=== PATIENT | male | born 1975 | race Two or more races ===

== ENCOUNTER → 2025-04-19 | Outpatient (CLI) | payer OTHER, SELFPAY ==
--- NOTE | 2025-04-19 16:21 | XR_ITS ---
EXAMINATION: Cervical spine, 5 views Technique: Cervical spine AP, AP odontoid, lateral, bilateral obliques, 5 views Exam date and time: April 19, 2025 1624 hours INDICATIONS: Injury to the neck today, neck pain. FINDINGS: Adequate alignment cervical vertebral bodies. No cervical fracture. Intact odontoid. Moderate cervical spondylosis. Mild disc narrowing C4-C5, C5-C6 Mild bilateral neuroforaminal stenosis C4-C5, C5-C6, C6-C7 IMPRESSION: No cervical fracture Mild degenerative disc disease C4-C5, C5-C6 Mild bilateral neural foraminal stenosis as above.
--- NOTE | 2025-04-19 16:21 | XR_ITS ---
Examination: Thoracic spine 3 views TECHNIQUE: AP lateral, lateral upper dorsal spine 3 views Date and time: April 19, 2025 1638 hours INDICATIONS: Work injury to the upper back today FINDINGS: Standing thoracic spine films demonstrate no acute thoracic fracture Mild diffuse thoracic disc narrowing. Moderate thoracic spondylosis Intact pedicles IMPRESSION: No acute thoracic fracture Mild diffuse thoracic degenerative disc disease
== END | disposition home or self-care (01) ==
LOC: CDIM 16:12
PROVIDERS: Referring Provider Family Medicine; Visit Provider Family Medicine
DX: S10.93XA Contusion of unspecified part of neck, initial encounter (principal); S20.224A Contusion of middle back wall of thorax, initial encounter; X58.XXXA Exposure to other specified factors, initial encounter; M51.34 Other intervertebral disc degeneration, thoracic region; M50.321 Other cervical disc degeneration at C4-C5 level; M48.02 Spinal stenosis, cervical region
CPT/HCPCS: 72050; 72072